=== PATIENT | female | born 1985 | race Caucasian/White ===

== ENCOUNTER 2017-09-20 18:47 | Emergency (ER) | payer OTHER ==
[2017-09-20 19:30] VITALS: BMI 32.3
--- NOTE | 2017-09-20 19:33 | PDOC ---
Rapid Medical Evaluation Chief Complaint: Pain Time Seen by Provider: 09/20/17 19:26 Medical Evaluation: Allergies Allergy/AdvReac Type Severity Reaction Status Date / Time No Known Allergies Allergy Verified 09/20/17 19:24 09/20/17 19:27 The patient presents with a chief complaint of: Vaginal bleeding and pain, was told that she was in and had demise was started on mesoprostol, and azithromycin, 09/09 beta 80890, 09/14 beta 73595 Pain since yesterday. ] I have performed a brief in-person evaluation of this patient. Pertinent physical exam findings: vss, [Abdomen is tender bilateral lower quadrants, lungs clear, RRR] I have ordered the following: [UA, UC, Beta Hcg, Type and screen ,cbc. US] The patient will proceed to the ED for further evaluation. 09/20/17 19:35 Discharge Disposition - Diagnosis Retained products of conception - Referrals - Patient Instructions - Post Discharge Activity
[2017-09-20 20:23] LABS: URINE APPEARANCE CLOUDY; URINE BILIRUBIN NEGATIVE (NEGATIVE); URINE BLOOD NEGATIVE (NEGATIVE); URINE COLOR YELLOW; URINE GLUCOSE (UA) NEGATIVE (NEGATIVE); URINE KETONE NEGATIVE (NEGATIVE); URINE LEUK ESTERASE NEGATIVE (NEGATIVE); URINE NITRITE NEGATIVE (NEGATIVE); URINE PROTEIN NEGATIVE (NEGATIVE); URINE UROBILINOGEN NEGATIVE mg/dL (0.2-1.0)
[2017-09-20 20:28] LABS: BASO % 0.5 % (0-2.0); EOS % 2.6 % (0-4.5); HEMATOCRIT 42.6 % (32.4-45.2); HEMOGLOBIN 14.2 GM/dL (10.7-15.3); LYMPH % 23.5 % (8-40); MCH 29.1 pg (25.7-33.7); MCHC 33.5 g/dl (32.0-36.0); MONO % 4.5 % (3.8-10.2); NEUT % 68.9 % (42.8-82.8); PLATELET COUNT 237 K/MM3 (134-434); RBC 4.89 M/mm3 (3.60-5.2); RDW 13.6 % (11.6-15.6); WHITE BLOOD COUNT 12.8 K/mm3 (4.0-10.0)
--- NOTE | 2017-09-20 22:48 | PDOC ---
History of Present Illness - General History Source: Patient Exam Limitations: Language Barrier (rn ent used) - History of Present Illness Initial Comments: 09/20/17 22:49 The patient is a 32 year old female, , with no significant past medical history, who presents to the emergency department sent from the clinic to obtain an ultrasound for concern of possible retained products of conception. The patient reports her LMP in May with reported vaginal bleeding in July. The patient reportedly had a BetaHCG from 09/09/17 which was 24,000. She was reportedly placed on Misoprotol yesterday. She denies chest pain, shortness of breath, headache and dizziness. She denies fever, chills, nausea, vomit, diarrhea and constipation. She denies dysuria, frequency, urgency and hematuria. Allergies: NKDA <Otilia Causey - Last Filed: 09/20/17 22:49> <Seema Diggs - Last Filed: 09/21/17 00:10> - General Chief Complaint: Pain Stated Complaint: VAGINAL BLEEDING Time Seen by Provider: 09/20/17 19:26 Past History <Otilia Causey - Last Filed: 09/20/17 22:49> - Past Medical History COPD: No - Suicide/Smoking/Psychosocial Hx Smoking History: Never smoked <Seema Diggs - Last Filed: 09/21/17 00:10> - Past Medical History Allergies/Adverse Reactions: Allergies Allergy/AdvReac Type Severity Reaction Status Date / Time No Known Allergies Allergy Verified 09/20/17 19:24 Home Medications: Ambulatory Orders Azithromycin 500 mg PO ONCE 09/20/17 Misoprostol 200 mcg PO DAILY 09/20/17 Review of Systems - Review of Systems Able to Perform ROS?: Yes Comments:: 09/20/17 22:49 CONSTITUTIONAL: Absent: fever, chills, diaphoresis, generalized weakness, malaise, loss of appetite HEENT: Absent: rhinorrhea, nasal congestion, throat pain, throat swelling, difficulty swallowing, mouth swelling, ear pain, eye pain, visual Changes CARDIOVASCULAR: Absent: chest pain, syncope, palpitations, irregular heart rate, lightheadedness , peripheral edema RESPIRATORY: Absent: cough, shortness of breath, dyspnea with exertion, orthopnea, wheezing, stridor, hemoptysis GASTROINTESTINAL: Absent: abdominal pain, abdominal distension, nausea, vomiting, diarrhea, constipation, melena, hematochezia GENITOURINARY: (+) vaginal bleeding in . r/o retained products. Absent: dysuria, frequency, urgency, hesitancy, hematuria, flank pain, genital pain MUSCULOSKELETAL: Absent: myalgia, arthralgia, joint swelling SKIN: Absent: rash, itching, pallor HEMATOLOGIC/IMMUNOLOGIC: Absent: easy bleeding, easy bruising, lymphadenopathy, frequent infections ENDOCRINE: Absent: unexplained weight gain, unexplained weight loss, heat intolerance, cold intolerance NEUROLOGIC: Absent: headache, focal weakness or paresthesias, dizziness, unsteady gait, seizure, mental status changes, bladder or bowel incontinence PSYCHIATRIC: Absent: anxiety, depression, suicidal or homicidal ideation, hallucinations. <Otilia Causey - Last Filed: 09/20/17 22:49> *Physical Exam - Vital Signs Last Vital Signs Temp Pulse Resp BP Pulse Ox 99 F 81 18 150/93 96 09/20/17 19:25 09/20/17 19:25 09/20/17 19:25 09/20/17 19:25 09/20/17 19:25 - Physical Exam Comments: 09/20/17 22:50 GENERAL: Well developed, well nourished. Awake and alert. No acute distress. HEENT: Normocephalic, atraumatic. PERRLA, EOMI. No conjunctival pallor. Sclera are non- icteric. Moist mucous membranes. Oropharynx is clear. NECK: Supple. Full ROM. No JVD. Carotid pulses 2+ and symmetric, without bruits. No thyromegaly. No lymphadenopathy. CARDIOVASCULAR: Regular rate and rhythm. No murmurs, rubs, or gallops. Distal pulses are 2+ and symmetric. PULMONARY: No evidence of respiratory distress. Lungs clear to auscultation bilaterally. No wheezing, rales or rhonchi. ABDOMINAL: Soft. Non-tender. Non-distended. No rebound or guarding. No organomegaly. Normoactive bowel sounds. MUSCULOSKELETAL Normal range of motion at all joints. No bony deformities or tenderness. No CVA tenderness. EXTREMITIES: No cyanosis. No clubbing. No edema. No calf tenderness. SKIN: Warm and dry. Normal capillary refill. No rashes. No jaundice. NEUROLOGICAL: Alert, awake, appropriate. Cranial nerves 2-12 intact. Normoreflexic in the upper and lower extremities. Normal speech. Toes are down-going bilaterally. Gait is normal without ataxia. PSYCHIATRIC: Cooperative. Good eye contact. Appropriate mood and affect. <tOilia Causey - Last Filed: 09/20/17 22:49> - Vital Signs Last Vital Signs Temp Pulse Resp BP Pulse Ox 99 F 81 18 150/93 96 09/20/17 19:25 09/20/17 19:25 09/20/17 19:25 09/20/17 19:25 09/20/17 19:25 <Seema Diggs - Last Filed: 09/21/17 00:10> ED Treatment Course - LABORATORY CBC & Chemistry Diagram: 09/20/17 20:05 - ADDITIONAL ORDERS Additional order review: Laboratory Results 09/20/17 09/20/17 09/20/17 20:05 20:05 20:05 Beta HCG, Quant 2734.6 Urine Color Yellow Urine Appearance Cloudy Urine pH 5.0 Ur Specific [place] 1.016 Urine Protein Negative Urine Glucose (UA) Negative Urine Ketones Negative Urine Blood Negative Urine Nitrite Negative Urine Bilirubin Negative Urine Urobilinogen Negative Ur Leukocyte Esterase Negative Blood Type O POSITIVE Antibody Screen Negative 09/20/17 20:05 RBC 4.89 MCV 87.0 MCHC 33.5 RDW 13.6 MPV 10.0 Neutrophils % 68.9 Lymphocytes % 23.5 Monocytes % 4.5 Eosinophils % 2.6 Basophils % 0.5 <Otilia Causey - Last Filed: 09/20/17 22:49> - LABORATORY CBC & Chemistry Diagram: 09/20/17 20:05 - ADDITIONAL ORDERS Additional order review: Laboratory Results 09/20/17 09/20/17 09/20/17 20:05 20:05 20:05 Beta HCG, Quant 2734.6 Urine Color Yellow Urine Appearance Cloudy Urine pH 5.0 Ur Specific [place] 1.016 Urine Protein Negative Urine Glucose (UA) Negative Urine Ketones Negative Urine Blood Negative Urine Nitrite Negative Urine Bilirubin Negative Urine Urobilinogen Negative Ur Leukocyte Esterase Negative Blood Type O POSITIVE Antibody Screen Negative 09/20/17 20:05 RBC 4.89 MCV 87.0 MCHC 33.5 RDW 13.6 MPV 10.0 Neutrophils % 68.9 Lymphocytes % 23.5 Monocytes % 4.5 Eosinophils % 2.6 Basophils % 0.5 <Seema Diggs - Last Filed: 09/21/17 00:10> Medical Decision Making - Medical Decision Making 52-year-old female 2, para 1, sent from her clinic for concern of retained POC on Sep 09 this year her paper work states her bhcg was about 24,000 -her physician gave her misoptostol to help with the bleeding tonight her bhcg is down to 2734 pelvic ultrasound 1-. Moderate to large blood within the endometrial canal , extending into the cigarette 2. No sonographic evidence of retained products of conception. At this time 3-rounded 2.4 x 2 cm echogenic structure. Lungs clear aspect of the endometrium , most likely submucosal medial myoma or echogenic blood clot. 4-there is no definite intrauterine gestational sac Impression impending . Plan follow-up with TOXICOLOGY SUPERVISOR with repeat beta hCG <Seema Diggs - Last Filed: 09/21/17 00:10> *DC/Admit/Observation/Transfer - Attestations Scribe Attestion: 09/20/17 22:50 Documentation prepared by Otilia Causey, acting as lpn or medical assistant for Seema Diggs MD <Otilia Causey - Last Filed: 09/20/17 22:49> <Seema Diggs - Last Filed: 09/21/17 00:10> Diagnosis at time of Disposition: Incomplete miscarriage - Discharge Dispostion Disposition: HOME Condition at time of disposition: Stable - Patient Instructions Printed Discharge Instructions: DI for Threatened Additional Instructions: Follow up with your electrical prospecting observer Get a repeat bhcg Print Language: NEPALESE
[2017-09-21 00:33] VITALS: BP 148/84; PULSE 80; TEMP 98.6
== END 2017-09-21 00:33 | disposition home or self-care (01) ==
LOC: JER 18:47
DX: O26.899 Other specified pregnancy related conditions, unspecified trimester (principal); O03.4 Incomplete spontaneous abortion without complication; Z3A.00 Weeks of gestation of pregnancy not specified
CPT/HCPCS: 36415; 76817-TC; 81003; 84702; 85025; 86850; 86900; 86901; 99282-25

== ENCOUNTER 2018-04-15 17:32 | Emergency (ER) | payer OTHER ==
--- NOTE | 2018-04-15 17:49 | PDOC ---
Rapid Medical Evaluation Time Seen by Provider: 04/15/18 17:44 Medical Evaluation: Allergies Allergy/AdvReac Type Severity Reaction Status Date / Time No Known Allergies Allergy Verified 04/15/18 17:42 04/15/18 17:44 Pt c/o: back pain worsened with movement, took motrin with minimal improvement, no urinary or bowel complaints, no rash, hx of back pain x 8 months, but not as severe Pt on brief exam: bilateral paraspinous tenderness at lumbar region, no cva tenderness Pt ordered for: ua, upreg,ucx Pt to proceed to the ED Discharge Disposition - Diagnosis Back pain Qualifiers: Back pain location: low back pain Chronicity: acute Back pain laterality: unspecified Sciatica presence: without sciatica Qualified Code(s): M54.5 - Low back pain - Discharge Dispostion Disposition: HOME Condition at time of disposition: Good - Prescriptions Prescriptions: Cyclobenzaprine HCl [Flexeril -] 10 mg PO HS #7 tablet Naproxen 500 mg PO BID #14 tablet - Referrals Referrals: Gerard Rivera MD [Staff Physician] - - Patient Instructions Printed Discharge Instructions: Low Back Pain Additional Instructions: Activity as tolerated May apply warm compress to area for 20 minutes 3 to 4 times daily - Post Discharge Activity Work/School Note: Back to Work
[2018-04-15 17:50] VITALS: BP 146/83; PULSE 68; TEMP 98.8; BMI 34.2
--- NOTE | 2018-04-15 18:29 | PDOC ---
History of Present Illness - General Chief Complaint: Back Pain Stated Complaint: LOWER BACK PAIN Time Seen by Provider: 04/15/18 17:44 History Source: Patient Exam Limitations: No Limitations - History of Present Illness Initial Comments: 04/15/18 18:24 32 year old female with lower back pain that radiates around to lower abdomen x 7 days. Reports pain is constant with no burning with urination, frequency, fever chills, radiation to buttocks or thighs. Also reports no constipation or diarrhea. States took advil with some relief but not complete relief of pain. Occurred: reports: last week Severity: reports: moderate Pain Location: reports: back Method of Injury: Yes: unknown Modifying Factors: improves with: immobilization, pain medication Loss of Consciousness: no loss of consciousness Associated Symptoms (Fall): denies symptoms Past History - Travel Traveled outside of the country in the last 30 days: No Close contact w/someone who was outside of country & ill: No - Past Medical History Allergies/Adverse Reactions: Allergies Allergy/AdvReac Type Severity Reaction Status Date / Time No Known Allergies Allergy Verified 04/15/18 17:42 Home Medications: Ambulatory Orders Cyclobenzaprine HCl [Flexeril -] 10 mg PO HS #7 tablet 04/15/18 Naproxen 500 mg PO BID #14 tablet 04/15/18 COPD: No Other medical history: DENIES. - Suicide/Smoking/Psychosocial Hx Smoking History: Never smoked Trauma Specific PMHX - Complaint Specific PMHX Arthritis: No Back Injury: No Neck Injury: No Hx Sacro Iliac Joint Dysfunction: No Review of Systems - Review of Systems Able to Perform ROS?: Yes Is the patient limited Armenian proficient: No Constitutional: No: Chills, Fever HEENTM: No: Nose Congestion, Throat Swelling, Difficulty Swallowing, Mouth Swelling Respiratory: No: Orthopnea, Shortness of Breath, SOB at Rest, Wheezing Cardiac (ROS): No: Chest Pain, Lightheadedness, Palpitations ABD/GI: No: Poor Appetite, Poor Fluid Intake Musculoskeletal: Yes: Back Pain. No: Joint Swelling, Joint Stiffness Neurological: No: Headache *Physical Exam - Vital Signs Last Vital Signs Temp Pulse Resp BP Pulse Ox 98.8 F 68 19 146/83 98 04/15/18 17:42 04/15/18 17:42 04/15/18 17:42 04/15/18 17:42 04/15/18 17:42 - Physical Exam General Appearance: Yes: Nourished, Appropriately Dressed. No: Apparent Distress HEENT: positive: EOMI, MARQUISE, TMs Normal, Pharynx Normal Neck: positive: Supple. negative: Lymphadenopathy (R), Lymphadenopathy (L) Respiratory/Chest: positive: Lungs Clear, Normal Breath Sounds. 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, Fully Oriented, Alert Medical Decision Making - Medical Decision Making 04/15/18 18:30 32 year old female with lower back pain with radiation to lower abdomen x 7 days urinalysis analgesia ordered 04/15/18 19:31 urinalysis negative less pain after analgesia d/c home with nsaid and muscle relaxant *DC/Admit/Observation/Transfer Diagnosis at time of Disposition: Back pain Qualifiers: Back pain location: low back pain Chronicity: acute Back pain laterality: unspecified Sciatica presence: without sciatica Qualified Code(s): M54.5 - Low back pain - Discharge Dispostion Disposition: HOME Condition at time of disposition: Good Decision to Admit order: No - Prescriptions Prescriptions: Cyclobenzaprine HCl [Flexeril -] 10 mg PO HS #7 tablet Naproxen 500 mg PO BID #14 tablet - Referrals Referrals: Gerard Rivera MD [Staff Physician] - - Patient Instructions Printed Discharge Instructions: Low Back Pain Additional Instructions: Activity as tolerated May apply warm compress to area for 20 minutes 3 to 4 times daily - Post Discharge Activity Forms/Work/School Notes: Back to Work
[2018-04-15 19:11] LABS: URINE APPEARANCE CLEAR; URINE BILIRUBIN NEGATIVE (<2.0 mg/dL); URINE COLOR LTYELLOW; URINE GLUCOSE (UA) NEGATIVE (NEGATIVE); URINE KETONE NEGATIVE (NEGATIVE); URINE LEUK ESTERASE NEGATIVE (NEGATIVE); URINE NITRITE NEGATIVE (NEGATIVE); URINE PROTEIN NEGATIVE (NEGATIVE); URINE UROBILINOGEN NEGATIVE mg/dL (0.2-1.0)
[2018-04-15 19:21] LABS: EPI CELLS RARE /HPF (FEW); URINE BACTERIA RARE /hpf (NONE SEEN); URINE MUCUS RARE
== END 2018-04-15 20:16 | disposition home or self-care (01) ==
LOC: JER 17:32 → JERFT 17:32
DX: M54.5 Low back pain (principal)
CPT/HCPCS: 81003; 81015; 87086; 99281-25

== ENCOUNTER 2018-06-04 17:46 | Emergency (ER) | payer OTHER ==
[2018-06-04 17:53] VITALS: BMI 34.6
[2018-06-04] MEDS ORDERED: ACETAMINOPHEN 500 MG TABLET (FP) PO ONE (18:34)
[2018-06-04] MEDS ORDERED: ACETAMINOPHEN 325 MG TABLET (FP) ONE (18:54)
[2018-06-04 19:12] LABS: BASO % 1.1 % (0-2.0); EOS % 2.7 % (0-4.5); HEMATOCRIT 43.1 % (32.4-45.2); HEMOGLOBIN 14.5 GM/dL (10.7-15.3); LYMPH % 30.7 % (8-40); MCH 29.5 pg (25.7-33.7); MCHC 33.7 g/dl (32.0-36.0); MEAN CELL VOLUME 87.5 fl (80-96); MONO % 6.1 % (3.8-10.2); NEUT % 59.4 % (42.8-82.8); PLATELET COUNT 239 K/MM3 (134-434); RBC 4.93 M/mm3 (3.60-5.2); RDW 13.5 % (11.6-15.6); WHITE BLOOD COUNT 8.4 K/mm3 (4.0-10.0)
[2018-06-04 19:34] LABS: URINE APPEARANCE CLEAR; URINE BILIRUBIN NEGATIVE (<2.0 mg/dL); URINE COLOR STRAW; URINE GLUCOSE (UA) NEGATIVE (NEGATIVE); URINE KETONE NEGATIVE (NEGATIVE); URINE LEUK ESTERASE NEGATIVE (NEGATIVE); URINE NITRITE NEGATIVE (NEGATIVE); URINE PROTEIN NEGATIVE (NEGATIVE); URINE UROBILINOGEN NEGATIVE mg/dL (0.2-1.0)
[2018-06-04 19:35] LABS: EPI CELLS RARE /HPF (FEW); HCG,QUALITATIVE URINE Negative; URINE BACTERIA RARE /hpf (NONE SEEN)
[2018-06-04] MEDS ORDERED: KETOROLAC TROMETHAMINE 30 MG/1 ML VIAL IM ONE (19:42)
[2018-06-04 19:49] LABS: ALBUMIN 3.3 g/dl (3.4-5.0); ALK PHOS 96 U/L (45-117); ANION GAP 10 MMOL/L (8-16); BILIRUBIN,TOTAL 0.2 mg/dL (0.2-1); BLOOD UREA NITROGEN 11 mg/dL (7-18); CALCIUM 9.3 mg/dL (8.5-10.1); CHLORIDE 105 mmol/L (98-107); CO2 27 mmol/L (21-32); CREATININE 0.5 mg/dL (0.55-1.3); GLUCOSE,RANDOM 109 mg/dL (74-106); POTASSIUM 3.9 mmol/L (3.5-5.1); SGOT/AST 33 U/L (15-37); SGPT/ALT 55 U/L (13-61); SODIUM 142 mmol/L (136-145); TOT PROT 6.8 g/dl (6.4-8.2)
[2018-06-04] MEDS ORDERED: KETOROLAC TROMETHAMINE 30 MG/1 ML VIAL ONE (20:08)
--- NOTE | 2018-06-04 20:21 | PDOC ---
History of Present Illness <Claribel Campos - Last Filed: 06/04/18 22:41> - General History Source: Patient Exam Limitations: No Limitations - History of Present Illness Initial Comments: 06/04/18 19:00 This is a 33 YOF with h/o chronic low back pain and spontaneous about one year ago, who p/w exacerbated chronic right low back pain which is worsening over the past two days and is bad enough that it has prevented her from being able to work (her occupation is in cleaning services). She also notes that the pain is radiating to the RLQ now, which has not happened to this extent in the past. She notes recent chills, and also mild vaginal bleeding over the past 1-2 days. Her LMP was 03/30/18 but she took a home test which was negative. She denies fever, nausea, vomiting, diarrhea, constipation, black/bloody stool, dysuria, hematuria, n/t/w focally, h/o UTI or renal stones, recent falls/injuries, etc. She denies change in weight, night sweats, or swollen lymph nodes. She does not use any drugs. <Marva Sauceda - Last Filed: 06/04/18 23:18> - General Chief Complaint: Pain Stated Complaint: BACK PAIN/FLANK PAIN Time Seen by Provider: 06/04/18 18:21 Past History <Claribel Campos - Last Filed: 06/04/18 22:41> - Past Medical History COPD: No - Suicide/Smoking/Psychosocial Hx Smoking History: Never smoked Information on smoking cessation initiated: No Hx Alcohol Use: No Drug/Substance Use Hx: No Substance Use Type: None <Marva Sauceda - Last Filed: 06/04/18 23:18> - Past Medical History Allergies/Adverse Reactions: Allergies Allergy/AdvReac Type Severity Reaction Status Date / Time No Known Allergies Allergy Verified 06/04/18 17:50 Review of Systems - Review of Systems Able to Perform ROS?: Yes Constitutional: Yes: Chills. No: Fever, Loss of Appetite, Malaise, Night Sweats , Weakness, Unexplained wgt Loss HEENTM: No: Nose Congestion, Throat Pain Respiratory: No: Cough, Shortness of Breath Cardiac (ROS): No: Chest Pain, Palpitations ABD/GI: No: Constipated, Diarrhea, Nausea, Vomiting : No: Burning, Dysuria Musculoskeletal: No: Back Pain, Neck Pain Integumentary: No: Bruising, Rash Neurological: No: Headache, Numbness, Tingling, Weakness, Dizziness Endocrine: No: Unexplained Weight Gain, Unexplained Weight Loss <Marva Sauceda - Last Filed: 06/04/18 23:18> *Physical Exam - Vital Signs Last Vital Signs Temp Pulse Resp BP Pulse Ox 99.2 F 75 18 155/92 100 06/04/18 17:50 06/04/18 17:50 06/04/18 17:50 06/04/18 17:50 06/04/18 17:50 <Claribel Campos - Last Filed: 06/04/18 22:41> - Vital Signs Last Vital Signs Temp Pulse Resp BP Pulse Ox 99.2 F 75 18 155/92 100 06/04/18 17:50 06/04/18 17:50 06/04/18 17:50 06/04/18 17:50 06/04/18 17:50 06/04/18 20:21 GENERAL: occasionally a bit tearful, nontoxic and well-appearing, nourished, A/ Ox4, appears comfortable unless repositioning, speaking in full sentences, answers questions appropriately, Filipino speaking, pleasant HEENT: PERRLA, EOMI, moist mucous membranes, no posterior pharyngeal erythema, no tonsillar swelling or exudates, no cervical lymphadenopathy NECK: No midline ttp, no spinal stepoff or deformity, full ROM, supple CARDIOVASCULAR: Regular rate and rhythm, normal S1S2, no MGR, radial and DP pulses 2+ and symmetric, capillary refill <2 seconds, extremities warm and well- perfused LUNGS/RESPIRATORY: No respiratory distress, normal and symmetric chest movements during respirations, lungs CTA bilaterally, equal breath sounds, no cyanosis, no nail clubbing GI/ABDOMEN: Normal symmetric appearance, normoactive bowel sounds, soft, mild RLQ tenderness to palpation, no Rovsing sign, no midline pulsatile masses, no palpated organomegaly : No CVA tenderness BACK: No midline ttp or stepoff or deformity of thoracic or lumbar spine, right paraspinous tenderness in the lower lumbar region EXTREMITIES: distal pulses 2+, warm and well-perfused, no LE edema SKIN: Warm and dry, no pallor, no jaundice, no bruising, no rash, no skin breakdown, no cuts, no lesions NEUROLOGICAL: GCS 15, CN II-XII grossly intact, ambulating with normal gait, moving all extremities, 5/5 strength proximally and distally, no facial droop, no decreased sensation <Sauceda,Mary - Last Filed: 06/04/18 23:18> ED Treatment Course - LABORATORY CBC & Chemistry Diagram: 06/04/18 18:52 06/04/18 18:45 - ADDITIONAL ORDERS Additional order review: Laboratory Results 06/04/18 06/04/18 19:00 18:45 Sodium 142 Potassium 3.9 Chloride 105 Carbon Dioxide 27 Anion Gap 10 BUN 11 Creatinine 0.5 L Creat Clearance w eGFR > 60 Random Glucose 109 H Calcium 9.3 Total Bilirubin 0.2 AST 33 ALT 55 Alkaline Phosphatase 96 Total Protein 6.8 Albumin 3.3 L Urine Color Straw Urine Appearance Clear Urine pH 7.0 D Ur Specific [place] 1.005 L Urine Protein Negative Urine Glucose (UA) Negative Urine Ketones Negative Urine Blood 2+ H Urine Nitrite Negative Urine Bilirubin Negative Urine Urobilinogen Negative Ur Leukocyte Esterase Negative Urine WBC (Auto) 1 Urine RBC (Auto) <1 Ur Epithelial Cells Rare Urine Bacteria Rare Urine HCG, Qual Negative 06/04/18 18:52 RBC 4.93 MCV 87.5 MCHC 33.7 RDW 13.5 MPV 10.0 Neutrophils % 59.4 Lymphocytes % 30.7 D Monocytes % 6.1 Eosinophils % 2.7 Basophils % 1.1 - Medications Given in the ED: ED Medications Discontinued Medications Generic Name Dose Route Start Last Admin Trade Name Gustavoq PRN Reason Stop Dose Admin Acetaminophen 1,000 mg 06/04/18 18:34 06/04/18 19:03 Tylenol - PO 06/04/18 18:35 1,000 mg ONCE ONE Administration Ketorolac Tromethamine 30 mg 06/04/18 19:42 06/04/18 20:00 Toradol Injection - IM 06/04/18 19:43 30 mg ONCE ONE Administration <Claribel Campos - Last Filed: 06/04/18 22:41> - LABORATORY CBC & Chemistry Diagram: 06/04/18 18:52 06/04/18 18:45 - ADDITIONAL ORDERS Additional order review: Laboratory Results 06/04/18 06/04/18 19:00 18:45 Sodium 142 Potassium 3.9 Chloride 105 Carbon Dioxide 27 Anion Gap 10 BUN 11 Creatinine 0.5 L Creat Clearance w eGFR > 60 Random Glucose 109 H Calcium 9.3 Total Bilirubin 0.2 AST 33 ALT 55 Alkaline Phosphatase 96 Total Protein 6.8 Albumin 3.3 L Urine Color Straw Urine Appearance Clear Urine pH 7.0 D Ur Specific [place] 1.005 L Urine Protein Negative Urine Glucose (UA) Negative Urine Ketones Negative Urine Blood 2+ H Urine Nitrite Negative Urine Bilirubin Negative Urine Urobilinogen Negative Ur Leukocyte Esterase Negative Urine WBC (Auto) 1 Urine RBC (Auto) <1 Ur Epithelial Cells Rare Urine Bacteria Rare Urine HCG, Qual Negative 06/04/18 18:52 RBC 4.93 MCV 87.5 MCHC 33.7 RDW 13.5 MPV 10.0 Neutrophils % 59.4 Lymphocytes % 30.7 D Monocytes % 6.1 Eosinophils % 2.7 Basophils % 1.1 - Medications Given in the ED: ED Medications Discontinued Medications Generic Name Dose Route Start Last Admin Trade Name Freq PRN Reason Stop Dose Admin Acetaminophen 1,000 mg 06/04/18 18:34 06/04/18 19:03 Tylenol - PO 06/04/18 18:35 1,000 mg ONCE ONE Administration <SaucedaMarva - Last Filed: 06/04/18 23:18> Medical Decision Making - Medical Decision Making Pt with h/o with chronic back pain p/w acute exacerbation of same chronic back pain. No new red flag symptoms (see HPI). Initial Vital Signs Temp Pulse Resp BP Pulse Ox 99.2 F 75 18 155/92 100 06/04/18 17:50 06/04/18 17:50 06/04/18 17:50 06/04/18 17:50 06/04/18 17:50 Exam: As noted in Physical Exam section. DDX IBNLT: DDD, DJD, osteophyte, compression fxr, other vertebral or spinous process fxr; much LL malignancy (i.e. multiple myeloma), spinal epidural abscess , epidural hematoma, meningitis, or other more concerning etiology. W/U ordered: Labs as noted below TX ordered: Tylenol PO, Toradol IM Laboratory Tests 06/04/18 06/04/18 06/04/18 18:45 18:52 19:00 WBC 8.4 RBC 4.93 Hgb 14.5 Hct 43.1 MCV 87.5 MCH 29.5 MCHC 33.7 RDW 13.5 Plt Count 239 MPV 10.0 Absolute Neuts (auto) 5.0 Neutrophils % 59.4 Lymphocytes % 30.7 D Monocytes % 6.1 Eosinophils % 2.7 Basophils % 1.1 Nucleated RBC % 0 Sodium 142 Potassium 3.9 Chloride 105 Carbon Dioxide 27 Anion Gap 10 BUN 11 Creatinine 0.5 L Creat Clearance w eGFR > 60 Random Glucose 109 H Calcium 9.3 Total Bilirubin 0.2 AST 33 ALT 55 Alkaline Phosphatase 96 Total Protein 6.8 Albumin 3.3 L Urine Color Straw Urine Appearance Clear Urine pH 7.0 D Ur Specific [place] 1.005 L Urine Protein Negative Urine Glucose (UA) Negative Urine Ketones Negative Urine Blood 2+ H Urine Nitrite Negative Urine Bilirubin Negative Urine Urobilinogen Negative Ur Leukocyte Esterase Negative Urine WBC (Auto) 1 Urine RBC (Auto) <1 Ur Epithelial Cells Rare Urine Bacteria Rare Urine HCG, Qual Negative Reassessment: States improved, able to ambulate normally. Vital Signs Temperature 98.4 F 06/04/18 22:45 Pulse Rate 67 06/04/18 22:45 Respiratory Rate 18 06/04/18 22:45 Blood Pressure 129/83 06/04/18 22:45 O2 Sat by Pulse Oximetry (%) 98 06/04/18 22:45 The Pt has gotten significant relief of symptoms while in the ED. They are appropriate for discharge with close outpatient follow up. The Pt is comfortable with this plan and will follow up with their primary care provider in 1-3 days. They are counseled on importance of proactive pain management and neurosurgery follow up. Specific return precautions are discussed and they will come back to the ER if necessary. <Marva Sauceda - Last Filed: 06/04/18 23:18> *DC/Admit/Observation/Transfer - Discharge Dispostion Decision to Admit order: No <Claribel Campos - Last Filed: 06/04/18 22:41> - Discharge Dispostion Decision to Admit order: No - Post Discharge Activity Activity Comments: 06/04/18 22:02 Please avoid bending/stooping/lifting any weight heavier than 15 lbs <Marva Sauceda - Last Filed: 06/04/18 23:18> Diagnosis at time of Disposition: Back pain Qualifiers: Back pain location: low back pain Chronicity: unspecified Back pain laterality : right Sciatica presence: without sciatica Qualified Code(s): M54.5 - Low back pain Abdominal pain Qualifiers: Abdominal location: right lower quadrant Qualified Code(s): R10.31 - Right lower quadrant pain - Discharge Dispostion Disposition: HOME Condition at time of disposition: Stable - Referrals Referrals: [facility] [place] [Provider Group] - Patient Instructions Printed Discharge Instructions: Exercise 101: Crunches, Start a Regular Exercise Program, DI for Low Back Pain, Effects of Exercise on 24-Month Maintenance of Weight Loss Additional Instructions: YOU WERE SEEN IN THE ER FOR AN ACUTE FLARE-UP OF BACK PAIN. WE GAVE YOU TYLENOL , WELL AN AN INJECTION OF TORADOL WHICH HELPED WITH YOUR PAIN. WE DID LABORATORY WORK, ALL OF WHICH WAS NORMAL. YOU ARE NOT ACCORDING TO OUR TEST. WE DID AN ABDOMEN/PELVIS CT SCAN WHICH WAS ALSO NORMAL. WE ARE GIVING YOU REFERRAL INFORMATION FOR ONE OF OUR NEUROSURGEONS; PLEASE FOLLOW UP WITH THEM OR WITH YOUR OWN NEUROSURGEON. PLEASE ALSO FOLLOW UP WITH YOUR PRIMARY CARE PROVIDER IN 1-3 DAYS. CALL THEIR CLINIC SOON POSSIBLE, TELL THEM YOU WERE SEEN IN THE ER FOR BACK PAIN, AND TELL THEM YOU NEED AN APPOINTMENT. IF YOU HAVE ANY NEW OR WORSENING SYMPTOMS PLEASE COME BACK TO THE ER AT ANY TIME (24 HOURS A DAY), ESPECIALLY FOR FEVER, NEW NUMBNESS, NEW TINGLING NEW WEAKNESS, NEW URINARY OR BOWEL INCONTINENCE OR RETENTION, OR OTHER NEW SYMPTOMS. IF YOU ARE HAVING SEVERE OR LIFE THREATENING SYMPTOMS, OR SYMPTOMS THAT MAKE IT UNSAFE TO DRIVE OR HAVE SOMEONE DRIVE YOU, PLEASE CALL 911. Print Language: SCOTTISH - Post Discharge Activity Forms/Work/School Notes: Back to Work
[2018-06-04 23:03] VITALS: BP 129/83; PULSE 67; TEMP 98.4
--- NOTE | 2018-06-04 23:56 | PDOC ---
Attending Attestation - HPI HPI: 06/05/18 00:04 The patient is a 33-year-old female with a past medical history significant for chronic low back pain presents to the emergency department with worsening pain. The patient reports the pain presented following a miscarriage around August 11 of last year. The patient reports since then shes been having intermittent episodes of right lower back pain that radiates to the right lower quadrant. The patient states the pain is exacerbated by bending down, states she s been unable to work secondary to the pain. The patient reports taking medication for the pain, without relief. Denies constipation, diarrhea, nausea, vomiting, fever, chest pain, shortness of breath or loss of appetite. The patient reports she can eat without complication. Allergies: NKA Social history: No past or present use of tobacco, alcohol or recreational drugs. Surgical history: None reported PCP: None reported. - Physicial Exam PE: 06/05/18 00:04 GENERAL: Awake, alert, and fully oriented, in no acute distress HEAD: No signs of trauma EYES: PERRLA, EOMI, sclera anicteric, conjunctiva clear ENT: Auricles normal inspection, hearing grossly normal, nares patent, oropharynx clear without exudates. Moist mucosa NECK: Normal ROM, supple, JVD, or masses LUNGS: Breath sounds equal, clear to auscultation bilaterally. No wheezes, and no crackles HEART: Regular rate and rhythm, normal S1 and S2, no murmurs, rubs or gallops ABDOMEN: Soft, nontender. No guarding, no rebound. No masses EXTREMITIES: Normal range of motion, no edema. No clubbing or cyanosis. No cords, erythema, or tenderness MUSCULOSKELETAL: No midline tenderness, minimal back pain, R. paraspinal pinched nerve pain going around the abdomen. NEUROLOGICAL: Cranial nerves II through XII grossly intact. Normal speech, normal gait SKIN: Warm, Dry, normal turgor, no rashes or lesions noted. - Medical Decision Making 06/05/18 00:05 Documentation prepared by Lamar Posey, acting as medical detailist for Claribel Campos MD. <Lamar Posey - Last Filed: 06/05/18 00:04> - Resident Resident Name: Marva Sauceda - ED Attending Attestation I have performed the following: I have examined & evaluated the patient, The case was reviewed & discussed with the resident, I agree w/resident's findings & plan - Medical Decision Making 06/05/18 00:[address] scan; I recommended MRI as an outpatient. Pt is obese and she doesn't stretch or exercise and her and daughter are obese. We discussed the importance of exercise and diet and weight loss on low back pain and core strength. <Claribel Campos - Last Filed: 06/05/18 00:33>
== END 2018-06-04 22:55 | disposition home or self-care (01) ==
LOC: JER 17:46
PROC: 3E0233Z Introduction of Anti-inflammatory into Muscle, Percutaneous Approach (ICD-10-PCS; principal; 2018-06-04)
DX: M54.5 Low back pain (principal); R10.31 Right lower quadrant pain
CPT/HCPCS: 36415; 74177-TC; 80053; 81003; 81015; 84703; 85025; 87086; 96372; 99283-25